=== PATIENT | female | born 1990 | race Caucasian/White ===

== ENCOUNTER 2019-04-15 08:25 | Emergency (ER) | payer MEDICAID ==
[~2019-04-15] VITALS: Ht 170.2 cm; Wt 64.0 kg
[2019-04-15 09:35] VITALS: BP 144/99
[2019-04-15] MEDS ORDERED: SODIUM CHLORIDE 0.9% 1,000 ML IV ONE (09:41)
[2019-04-15] MEDS ORDERED: LORAZEPAM 2MG/ML CPJ IV STA (09:41)
[2019-04-15 10:06] LABS: BASOPHILS % 0.6 % (0.0-2.0); EOSINOPHILS % 6.7 % (0.0-5.0); HEMATOCRIT. 44.6 % (36.0-48.0); HEMOGLOBIN. 15.4 g/dL (12.0-16.0); LYMPHOCYTES % 28.4 % (20.0-50.0); MEAN CORPUSCULAR HEMOGLOBIN 30.5 pg (28.0-32.0); MEAN CORPUSCULAR VOLUME 88.6 fL (81.0-99.0); MEAN PLATELET VOLUME 6.6 fl (7.4-10.4); MONOCYTES % 6.6 % (2.0-8.0); NEUTROPHILS % 57.7 % (40.0-76.0); PLATELET 425 x1000/uL (130-400); RED BLOOD CELL COUNT 5.04 mill/uL (4.2-5.4); RED CELL DISTRIBUTION WIDTH 13.3 % (11.6-14.6)
[2019-04-15 10:15] LABS: CHLORIDE 105 mEq/L (98-107)
[2019-04-15 10:19] LABS: ETHANOL BLOOD 252 mg/dL
== END 2019-04-15 12:06 | disposition home or self-care (01) ==
LOC: ER 08:25
DX: F41.9 Anxiety disorder, unspecified (principal); M62.838 Other muscle spasm; Y08.89XA Assault by other specified means, initial encounter; Y93.89 Activity, other specified; Y92.89 Other specified places as the place of occurrence of the external cause; Y99.8 Other external cause status
CPT/HCPCS: 36415; 80053; 80320; 81025; 85025; 93005; 96374; 99284; J2060; J7030; G0480

== ENCOUNTER 2019-09-23 21:10 | Emergency (ER) | payer SELFPAY ==
[~2019-09-23] VITALS: Ht 165.1 cm; Wt 59.0 kg
[2019-09-23] MEDS ORDERED: ONDANSETRON HCL 4MG/2ML INJ IV ONE (22:00)
[2019-09-23] MEDS ORDERED: PANTOPRAZOLE SODIUM 40 MG/VIAL IV ONE (22:00)
[2019-09-23] MEDS ORDERED: SODIUM CHLORIDE 0.9% 1,000 ML IV ONE (22:00)
[2019-09-23 22:39] LABS: BASOPHILS % 0.9 % (0.0-2.0); EOSINOPHILS % 0.2 % (0.0-5.0); HEMATOCRIT. 45.8 % (36.0-48.0); HEMOGLOBIN. 15.3 g/dL (12.0-16.0); LYMPHOCYTES % 9.1 % (20.0-50.0); MEAN CORPUSCULAR HEMOGLOBIN 29.8 pg (28.0-32.0); MEAN CORPUSCULAR VOLUME 89.1 fL (81.0-99.0); MEAN PLATELET VOLUME 6.8 fl (7.4-10.4); MONOCYTES % 2.6 % (2.0-8.0); NEUTROPHILS % 87.2 % (40.0-76.0); PLATELET 495 x1000/uL (130-400); RED BLOOD CELL COUNT 5.14 mill/uL (4.2-5.4); RED CELL DISTRIBUTION WIDTH 13.2 % (11.6-14.6)
[2019-09-23 22:42] LABS: CHLORIDE 106 mEq/L (98-107)
[2019-09-23 22:43] LABS: *AMPHETAMINES SCREEN URINE NEGATIVE (NEGATIVE); *BARBITURATES SCREEN URINE NEGATIVE (NEGATIVE); CANNABINOID URINE SCREEN NEGATIVE (NEGATIVE); METHADONE URINE SCREEN NEGATIVE (NEGATIVE); OPIATES URINE SCREEN NEGATIVE (NEGATIVE); PHENCYCLIDINE URINE SCREEN NEGATIVE (NEGATIVE)
[2019-09-23 22:44] LABS: *BENZODIAZEPINES SCREEN URINE NEGATIVE (NEGATIVE)
[2019-09-23 22:45] LABS: *COCAINE SCREEN URINE PRESUMTIVE POSITIVE (NEGATIVE)
[2019-09-23 22:46] LABS: ETHANOL BLOOD 274 mg/dL
[2019-09-23 22:48] LABS: HCG SCREEN NEGATIVE
[2019-09-24 02:15] VITALS: BP 115/79
== END 2019-09-24 03:00 | disposition home or self-care (01) ==
LOC: ER 21:10
DX: F10.129 Alcohol abuse with intoxication, unspecified (principal); Y90.9 Presence of alcohol in blood, level not specified; F14.10 Cocaine abuse, uncomplicated
CPT/HCPCS: 36415; 80053; 80305; 80320; 81025; 83690; 84703; 85025; 93005; 96361; 96374; 96375; 99284; C9113; J2405; J7030; G0480

== ENCOUNTER 2020-07-17 08:55 | Emergency (ER) | payer MEDICAID ==
[~2020-07-17] VITALS: Ht 167.6 cm; Wt 65.0 kg
[2020-07-17 09:10] VITALS: BP 133/79
== END 2020-07-17 09:28 | disposition home or self-care (01) ==
LOC: ER 09:03
DX: F41.9 Anxiety disorder, unspecified (principal)
CPT/HCPCS: 99283